=== PATIENT | male | born 1935 | race Caucasian/White ===

== ENCOUNTER 2019-01-08 18:01 | Emergency (ER) | payer OTHER ==
[~2019-01-08] VITALS: Ht 160 cm; Wt 54.4 kg
[2019-01-08] MEDS ORDERED: ZOLOFT20 MG/1 ML (18:42)
[2019-01-08] MEDS ORDERED: DILANTIN30 MG (18:43)
[2019-01-08] MEDS ORDERED: NAMENDA5 MG (18:44)
[2019-01-08] MEDS ORDERED: CLONOPIN (18:44)
[2019-01-08] MEDS ORDERED: SEROQUEL25 MG (18:44)
[2019-01-08] MEDS ORDERED: ASPIRIN1 GM (18:45)
[2019-01-08] MEDS ORDERED: CEFADROXIL500 MG PO (22:35)
[2019-01-08] MEDS ORDERED: PEPCID AC20 MG PO (22:35)
[2019-01-08] MEDS ORDERED: INTESTINEX680 M1 PO (22:35)
== END 2019-01-09 00:16 | disposition home or self-care (01) ==
LOC: ER 18:01
DX: N39.0 Urinary tract infection, site not specified (principal); R50.9 Fever, unspecified